=== PATIENT | male | born 1955 | race Caucasian/White ===

== ENCOUNTER → 2017-02-02 | Outpatient (CLI) | payer OTHER ==
[~2017-02-02] MED LIST: AFLEXERYL-LC 41 EACH TOP; ALDACTAZIDE 251 EAC1 PO; ALTACE10 M1; ALTACE10 MG PO; ANASPAZ0.125 MG SL; ATORVASTATIN CA40 MG PO; AUGMENTIN 875-1 EACH PO; BRINTELLIX10 MG PO; CARVEDILOL12.5 MG; CELEBREX 200 M200 M1 PO; COLACE 100 MG100 MG PO; COUMADIN 2 MG TA2 M1 PO; COUMADIN 5 MG TA5 M1 PO; COUMADIN7.5 MG PO; CYMBALTA60 MG; CYMBALTA60 MG PO; ENOXAPARIN150 MG/11 SUBQ; ENOXAPARIN30 MG/0.1 SUBQ; ENOXAPARIN80 MG/0.1 SUBQ; FLOMAX PO; FOLIC ACID1 MG PO; HYDROCODON-ACE1 EAC5; HYDROCODONE-AP1 EAC6 PO; IBUPROFEN 800800 M1 PO; MORPHINE SULFAT30 M1; MS CONTIN15 MG PO; NEURONTIN 300M300 M2; NEURONTIN100 MG PO; NORCO 5-325 TA1 EACH PO; OXYCODONE HCL 55 MG PO; OXYCODONE HCL5 M1 PO; PERCOCET 5-3251 EACH PO; PHENTERMINE H37.5 MG; PRAVACHOL40 MG; PRED-FORTE OPHTH1 M1; PROAIR HFA8.5 GM INH; REGLAN 10 MG TA10 MG PO; TESSALON PERLE100 MG PO; TIZANIDINE HCL4 MG PO; VITAMIN D-32000 UNIT; ZOFRAN 4 MG ORAL4 M1 DIS
[2017-02-02 09:15] LABS: CREATININE 0.8 mg/dL (0.6-1.3)
== END ==
LOC: M.LAB 01-25 06:30 → M.MRI 01-25 07:30 → M.LAB 02-01 07:30 → M.MRI 02-01 08:30 → M.LAB 08:47
DX: K76.89 Other specified diseases of liver (principal)

== ENCOUNTER → 2017-02-20 | Outpatient (CLI) | payer OTHER | LOC: M.MRI 13:06 | DX: M51.24 Other intervertebral disc displacement, thoracic region (principal); M47.894 Other spondylosis, thoracic region; M25.78 Osteophyte, vertebrae ==

== ENCOUNTER → 2017-02-28 | Outpatient (CLI) | payer OTHER ==
--- NOTE | 2017-03-01 08:24 | PAINCON ---
[address] [address] PAIN MANAGEMENT CONSULTATION Name: AURE BERG Room: [facility] Rhonda#: [id number] Admission: 02/28/17 Attend Phys: Terrance Gallo Discharge: Date of : 57 Report #: [id number] THIS REPORT FOR: //name// CC: Gabino Goldstein DO Christiano Bryant DATE OF SERVICE: 02/28/2017 The patient is a 61-year-old gentleman seen in the Pain Clinic in consultation at the request of Dr. Goldstein for evaluation of pain, right flank. The patient notes he has constant, sharp, burning pain in the right flank, which has been present for a number of years, states it started acutely in 12/2015 without antecedent trauma and overuse. He has been disabled for many years due to multiple ongoing concerns. He rates his pain as 7 on an VAS despite taking 30 mg of morphine daily (MS Contin 30 mg at bedtime), Cymbalta 60 mg daily (he has taken morphine for 17 years and duloxetine for 4 years). He gives me a long list of pain generators including DJD bilateral hips, neuropathic pain, myofascial pain, SI joint pain, lumbar spondylosis, cervical radiculopathy, and status post decompressive laminectomy. He states he has had a right total hip arthroplasty 10/13/2016. He has left hip DJD and sciatic symptoms of neurogenic claudication, but his primary pain is right flank pain. On further questioning and physical exam, actually it appears that the pain is more in a right low back distribution and somewhat at the L4 level, radiating around to paravertebral muscles. The patient denies radiation of pain into the legs from the right "flank" pain. States really any and all activity including even sneezing exacerbates this pain. He gets some relief with rest. REVIEW OF SYSTEMS: Complete review of systems was attached to chart and was gone with the patient. He is . He does not smoke and does not drink alcohol to excess. History of hypertension, history of hypercoagulopathy (protein S deficiency), has had 2 CVAs back about 30 years ago, unfortunately no sequelae. He does take Coumadin daily. He takes ramipril for hypertension, atorvastatin for dyslipidemia. As noted in chief complaint, he takes duloxetine 60 mg a day and MS Contin 30 mg at bedtime for chronic pain concerns. He has been retired, medically disabled for the past 10 years due to pain. He has had 3 back surgeries in 1992, 1995, and 1997. 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 He has had a right rotator cuff repair, right total hip arthroplasty. Pain impact score is fairly high, scoring 50/70. PHYSICAL EXAMINATION: Shows a 6 feet 3 inches, 312-pound gentleman, BMI is 39.4 kg/m2. Blood pressure is 160/91, pulse respirations 16[place] [address] PAIN MANAGEMENT CONSULTATION Name: AURE BERG [id number] Admission: 02/28/17 Attend Phys: Terrance Gallo Discharge: Date of : 56 Report #: [id number] 2-12 are grossly intact. Pupils appear equal and reactive to light and accommodation. Extraocular muscles are intact. Again, he does have a decreased right lateral field visual acuity. No nystagmus. Lateral gaze deviation is noted. Cervical range of motion is full. Alert and oriented to person, place and time, judged to be a reasonable historian. Thyroid is unremarkable. Upper extremity strength is about 4/5 to all muscle groups tested. Heart is regular and rhythmical without murmur. Lungs clear to auscultation. Abdomen shows an endomorphic build. Rises from chair using the armrest, antalgic gait, though objectively lower extremity strength is 4/5 to all muscle groups tested. Straight leg raise is negative. Patellar and Achilles reflexes are diminished, but symmetric. Does have a significant diastasis recti ventral hernia. Tender over the right iliac crest and right lateral paravertebral muscles. Pain is exacerbated with rotating and side bending. Some tenderness over the right SI as well. Radha and Gaenslen's test deferred as patient is status post right total hip arthroplasty. DIAGNOSTIC STUDIES: There are no recent diagnostic studies available for evaluation at this time. ASSESSMENT: Chronic pain in patient with multiple pain generators as discussed in the chief complaint; however, current pain appears to be coming from right L4-L5 and L5-S1 facet joints. May be component of right SI joint pain. We discussed moving forward with therapeutic options. We will seek authorization for right L4-L5 and L5-S1 facet joint injections under fluoroscopy. If this does not afford adequate relief, can move forward with right SI joint injection under fluoroscopy. If the facet joint injections do afford adequate relief, but only transient, we may consider moving forward with medial branch dorsal rami diagnostic blocks. We can do the facet injections on Coumadin; however, would want to get the patient on a Lovenox "bridge" for medial branch dorsal rami diagnostic blocks and neurolysis. Thanks for allowing me to participate in the care the patient's care. Again, we will plan on moving forward with right L4-L5 and L5-S1 facet joint injection under fluoroscopy at next visit. <ELECTRONICALLY SIGNED> By: Christiano Bryant DO 03/01/17 0824 1514 0100Christiano Bryant DO /nt
== END ==
LOC: M.PC 02-21 01:30
DX: G89.29 Other chronic pain (principal); M53.3 Sacrococcygeal disorders, not elsewhere classified

== ENCOUNTER → 2017-03-07 | Outpatient (CLI) | payer OTHER ==
--- NOTE | 2017-03-12 07:21 | PAINCON ---
[address] [address] PAIN MANAGEMENT CONSULTATION Name: AURE BERG Room: [facility] NATHAN Ellis#: [id number] Admission: 03/07/17 Attend Phys: Terrance Gallo Discharge: Date of : 56 Report #: [id number] THIS REPORT FOR: //name// CC: Gabino Bryant The patient is a 61-year-old gentleman, prior seen in consultation on 02/28/2017. The patient was diagnosed with symptomatic lumbar radiculopathy status post decompressive laminectomy, right low lumbar facet generated pain, component of right SI mediated pain, component of failed back syndrome and chronic pain with neuropathic pain component and depression related to factors noted above. We sought authorization for right L4-L5 and L5-S1 facet joint injections under fluoroscopy. The patient presents to pain clinic today for facet injection. We did have a prolonged visit today discussing therapeutic options. The patient was actually a little tearful today stating he has had chronic pain for 30 years and is getting quite frustrated. He does take Cymbalta 60 mg 1 a day, which has been incrementally helpful. He does use opiate analgesics which help "blunt" pain (MS extended release 60 mg b.i.d. with hydrocodone 5/325 up to 4 a day for approximately 80 milligram equivalents of morphine daily). Today, we talked about therapeutic options. The patient was concerned about his spinal stenosis. His prior back surgeries x , 1992, 1995 and 1997 have left the patient with ongoing pain. I did review his 07/24/2014 MRI of the lumbar spine today. The patient has stenosis at L2-L3 secondary to facet degenerative changes, bilateral neural foraminal narrowing, component of disk "bulging" and ligamentum flavum hypertrophy. Canal is narrowed to 5-6 mm at the superior aspect. L5-S1 shows severe bilateral neural foraminal narrowing. Today, we did talk about moving forward with the aforementioned right L4-L5 and L5-S1 facet joint injections. If this affords short-term relief, we can consider medial branch dorsal rami diagnostic block in consideration of RFL. If this does not afford adequate relief, we did talk about other therapeutic options for ongoing pain management. Having failed back surgery with pain that is significantly impactful, we did discuss a spinal cord stimulator. This has been brought up to the patient before, though with a psychological evaluation noting patient did have ongoing depression, his prior pain physician had elected not to move forward. I think this is not a rate limiting obstacle (depression). As long as the patient is aware of the depression and is being treated, the most impactful issue for psychological evaluation as required by most third libertarian payers is to evaluate any component of malingering. I do not detect that with the patient. He does have ongoing anxiety and depression secondary to chronic pain. We talked today about this. He does take Cymbalta 60 mg daily and he has for some time, I suggested he could consider doubling this agent. Again, he has a fairly large body mass index (he is 6 feet 2 inches and [address] [place] [address] PAIN MANAGEMENT CONSULTATION Name: AURE BERG Room: [facility] Rhonda#: [id number] Admission: 03/07/17 Attend Phys: Terrance Gallo Discharge: Date of : 56 Report #: [id number] with a BMI of 40 kilograms per meter squared). I did give the patient print and video literature regarding the high frequency Nevro spinal cord stimulator. A possible concerning issue is the fact that he has protein S deficiency, hypercoagulability. He uses Coumadin daily. He has had multiple strokes including an ocular stroke. He does have a vena cava filter in place. He would need to be transitioned with Lovenox, off of Coumadin for the trial. There is a concern in the literature regarding whether or not to resume blood thinner while the trial is in place. Also, concerns for safety of spinal cord stimulator placement in a patient on active anticoagulant. ASSESSMENT #1: Chronic pain syndrome, status post lumbar decompressive laminectomy, failed back syndrome and depression. RECOMMENDATION: As noted above, increase Cymbalta b.i.d. The patient was given spinal cord stimulator print and video literature. ASSESSMENT #2: Axial back pain. RECOMMENDATION: Right L4-L5 and L5-S1 facet joint injections under fluoroscopy today. PROCEDURE NOTE: After written informed consent was obtained, the patient was taken to the fluoroscopy suite, placed in the prone position. After sterile prep and drape, skin wheal was raised. A 22-gauge stylet needle was placed to contact the inferior aspect of the right L4-L5 and right L5-S1 facet. AP and lateral projections showed good needle placement. A 20 mg triamcinolone plus 1 mL of 0.5% preservative-free bupivacaine was injected at each site. Both needles removed. The area was cleansed and Band-Aids applied. The patient monitored for an appropriate period of time, discharged in good stable condition. <ELECTRONICALLY SIGNED> By: Christiano Bryant DO 03/12/17 0721 1439 [id number] Leonard Bryant DO /nt
== END | disposition home or self-care (01) ==
LOC: M.PC 01:41
DX: M54.16 Radiculopathy, lumbar region (principal); M48.061 Spinal stenosis, lumbar region without neurogenic claudication; M53.3 Sacrococcygeal disorders, not elsewhere classified; M96.1 Postlaminectomy syndrome, not elsewhere classified; G89.4 Chronic pain syndrome; F41.9 Anxiety disorder, unspecified; F32.9 Major depressive disorder, single episode, unspecified; Z98.890 Other specified postprocedural states; Z79.899 Other long term (current) drug therapy; Z79.01 Long term (current) use of anticoagulants

== ENCOUNTER → 2017-04-04 | Outpatient (CLI) | payer OTHER ==
--- NOTE | 2017-04-05 10:21 | PAINCON ---
[address] [address] PAIN MANAGEMENT CONSULTATION Name: AURE BERG [facility] [id number] Admission: 04/04/17 Attend Phys: Terrance Gallo Discharge: Date of : 56 Report #: [id number] THIS REPORT FOR: //name// CC: Gabino Bryant DATE OF SERVICE: 04/04/2017 The patient is a very pleasant 62-year-old [employer] retiree being seen for ongoing axial back pain. Last visit 03/07/2017, I did write L4-L5 and L5-S1 facet joint injections under fluoroscopy. The patient has prior had back surgery x , 1992, 1995, 1997. Radicular symptoms have generally improved, but he has ongoing right low back pain. He notes very good, greater than 60% relief following the L4-L5, L5-S1 facet joint injections for about 2 days, but pain began to recur to baseline. The patient notes ongoing subjective pain, low back, right side beltline and down. Pain is exacerbated with standing, rotating and side bending. PHYSICAL EXAMINATION: Otherwise unchanged. Lower extremity strength is preserved. Straight leg raise is negative. Well-healed surgical scar compatible with multiple back surgeries. DIAGNOSTIC STUDIES: Reviewed including MRI from 07/24/2014. The patient has bony proliferation at L2-L3 from inferior margin of the facet joints bilaterally causing fairly narrow canal down to about 5-6 mm with ligamentum flavum hypertrophy. The patient believes that this may have been secondary to trauma, he had fallen on his back, striking at area he recalls was around the L2-L3 area. He has had multiple back surgeries, subsequent to this due to ongoing stenosis. The patient does have ongoing lumbar spondylosis as well as bilateral neural foraminal narrowing, most severe at L5-S1. Fortunately, this does not correlate with L5 radicular symptoms. ASSESSMENT: Symptomatic lumbar and lumbosacral spondylosis without myelopathy or radiculopathy (M47.816, M47.817) in a gentleman status post multiple back surgeries requiring complex medication management. RECOMMENDATIONS: Discussion with the patient today about therapeutic option. We elected to seek authorization for right-sided medial branch dorsal rami diagnostic blocks at L3, L4 and L5. If this affords transient relief, we will seek authorization for radiofrequency [place] [address] PAIN MANAGEMENT CONSULTATION Name: AURE BERG Room: [facility]#: [id number] Admission: 04/04/17 Attend Phys: Terrance Gallo Discharge: Date of : 56 Report #: [id number] If this does not afford adequate relief, we may consider spinal cord stimulator as a possible therapeutic option. <ELECTRONICALLY SIGNED> By: Christiano Bryant DO 04/05/17 1021 1339 1848[facility] Centerroland Bryant DO /randi
== END ==
LOC: M.PC 03:40
DX: M47.817 Spondylosis without myelopathy or radiculopathy, lumbosacral region (principal); Z98.890 Other specified postprocedural states; Z79.899 Other long term (current) drug therapy

== ENCOUNTER → 2017-04-18 | Outpatient (CLI) | payer OTHER ==
--- NOTE | 2017-04-19 09:41 | PAINCON ---
[address] [address] PAIN MANAGEMENT CONSULTATION Name: AURE BERG [id number] Admission: 04/18/17 Attend Phys: Terrance Gallo Discharge: Date of : 56 Report #: [id number] THIS REPORT FOR: //name// CC: Gabino Bryant DATE OF SERVICE: 04/18/2017 PROCEDURE: Medial branch dorsal rami diagnostic block in the lumbar area x 3 (right side L3, L4, L5). INDICATIONS: Symptomatic lumbar spondylosis, lumbosacral spondylosis, M47.816, M47.817, status post lumbar decompressive laminectomy in the distant past. The patient was last seen 04/04/2017. We sought authorization for medial branch dorsal rami diagnostic blocks on the right at L3, L4, L5. He had had prior excellent, yet short term relief with L4-L5 and L5-S1 facet joint injections on the right side at prior visit. The patient continues with ongoing pain of right low back. He also has pain in the left hip and is scheduled for left total hip arthroplasty at the end of the month. ASSESSMENT: M47.816, M47.817 in a gentleman status post lumbar decompressive laminectomy in the distant past. PROCEDURE NOTE: After written informed consent was obtained, the patient was taken to the fluoroscopy suite and placed in prone position. After sterile prep and drape and skin was raised, a 22-gauge stylet needle was placed to contact superior articular process of L4 and L5 adjacent to the L3 and L4 medial branch dorsal rami. A third needle, this being a 4-1/2 inch 22-gauge stylet needle was placed to contact the sacral alar notch on the right corresponding to the right L5 dorsal rami. AP and lateral projections showed good needle placement. 1 mL of a 50:50 mix of 0.5% preservative-free bupivacaine plus 1.5% preservative-free Xylocaine with 1:200,000 epinephrine was injected in all 3 sites. All 3 needles removed. The area was cleansed. Bandages were applied. Fluoroscopy time was under 20 seconds. The patient noted significant improvement of baseline pain, in fact noting that the right "flank" pain was essentially absent on discharge. We will plan on following up in 2 weeks to evaluate duration of block, which should be the length of the local anesthetic. [place] [address] PAIN MANAGEMENT CONSULTATION Name: AURE BERG [facility] [id number] Admission: 04/18/17 Attend Phys: Terrance Gallo Discharge: Date of : 56 Report #: [id number] for RFL of same. Given pending total hip arthroplasty, we will likely postpone the RFL until 4-6 weeks after his hip surgery. <ELECTRONICALLY SIGNED> By: Christiano Bryant DO 04/19/17 0941 1358 1940[place] Leonard Bryant DO /nt
== END | disposition home or self-care (01) ==
LOC: M.PC 04-11 12:50
DX: M47.816 Spondylosis without myelopathy or radiculopathy, lumbar region (principal); M47.817 Spondylosis without myelopathy or radiculopathy, lumbosacral region; Z98.890 Other specified postprocedural states

== ENCOUNTER → 2017-05-02 | Outpatient (CLI) | payer OTHER ==
--- NOTE | 2017-04-19 15:23 | EKG ---
[place] [address] ELECTROCARDIOGRAM REPORT Name: AURE BERG Room: [facility]#: [id number] Admission: Attend Phys: Terrance Gallo Discharge: Date of : 56 Report #: [id number] THIS REPORT FOR: //name// [facility] Test Date: 2017-04-19 Test Time: 09:05:48 Pat Name: AURE BERG Department: Room: Gender: M Doula: : 1955 Requested By: David Alexis Order Number: [id number] Reading MD: Mk Perdue Measurements Intervals [place] Rate: 70 P: 59 NM: 162 QRS: 61 QRSD: 97 T: 49 QT: 389 QTc: 420 Interpretive Statements Sinus rhythm Baseline wander in lead(s) I,III,aVL,aVF,V1,V2,V3,V4,V5,V6 Compared to ECG 09/28/2016 09:03:23 No significant changes Electronically Signed On 04-19-2017 15:22:58 CDT by Mk Perdue [email or web address] <ELECTRONICALLY SIGNED> By: Mk Perdue MD, [facility] 04/19/17 1522 0905 0905 Mk Perdue MD, [facility] /EPI
--- NOTE | 2017-05-04 09:51 | PAINCON ---
[address] [address] PAIN MANAGEMENT CONSULTATION Name: AURE BERG Room: [facility] NATHAN Ellis#: [id number] Admission: 05/02/17 Attend Phys: Terrance Gallo Discharge: Date of : 56 Report #: [id number] THIS REPORT FOR: //name// CC: Gabino Bryant DATE OF SERVICE: 05/02/2017 The patient is a very pleasant 62-year-old gentleman being treated for lumbar spondylosis without myelopathy or radiculopathy, history of decompressive lumbar laminectomy. He prior had good relief with right L4-L5 and L5-S1 facet joint injections (03/07/2017) for several weeks with pain gradually recurred. Last visit on 04/18/2017, we did diagnostic medial branch dorsal rami blocks at right L3, L4, and L5. The patient returns to Pain Clinic today. Please note that he had 90% relief for actually several days following the injection, but pain has begun to recur, is back to 6-7 on a VAS right low back, exacerbated with rotating and bending. He incidentally has ongoing pain in left hip and is in fact scheduled for total hip arthroplasty next week. We talked about moving forward with radiofrequency neurolysis. We would like to wait 6 weeks after his surgery as we will use steroid at the RFL lesion sites and would not want to interfere with postoperative healing. PHYSICAL EXAMINATION: Shows 6 feet 2 inches, 316-pound gentleman, BMI is 40.5 kg/m2. Blood pressure 158/85, pulse wnl respirations 16. Alert and oriented to person, place and time, judged to be a reasonable historian. Right flank pain exacerbated with standing, walking, and bending. Gait is antalgic secondary to a DJD left hip. Lower extremity strength is preserved. No radicular symptoms are noted. ASSESSMENT: Symptomatic lumbar spondylosis without myelopathy or radiculopathy. RECOMMENDATIONS: We will seek authorization for radiofrequency neurolysis, right medial branch dorsal rami L3, L4 and L5 at next visit. Again, we will plan on doing this 6 weeks after his surgery next week, would target mid to late June. Of note, the patient is on Coumadin. He will need to bridge with Lovenox 5 days prior to the procedure. He is on Coumadin due to protein S deficiency and antithrombin deficiency, all culminating in multiple (either 2 or 3) [place] [address] PAIN MANAGEMENT CONSULTATION Name: AURE BERG Room: [facility]#: [id number] Admission: 05/02/17 Attend Phys: Terrance Gallo Discharge: Date of : 56 Report #: [id number] Discharged in good and stable condition. <ELECTRONICALLY SIGNED> By: Christiano Bryant DO 05/04/17 0951 1435 1814[facility] Hospitalroland Bryant DO /randi
== END ==
LOC: M.PC 02:33
DX: M47.816 Spondylosis without myelopathy or radiculopathy, lumbar region (principal)

== ENCOUNTER 2017-05-04 08:39 | Inpatient (IN) | payer OTHER ==
[2017-04-19 09:58] LABS: ABSOLUTE BASOPHILS 0.1 thou/uL (0.0-0.2); ABSOLUTE EOSINOPHILS 0.1 thou/uL (0.0-0.7); ABSOLUTE LYMPHOCYTES 2.6 thou/uL (0.8-5.3); ABSOLUTE MONOCYTES 0.7 thou/uL (0.0-1.2); ABSOLUTE NEUTROPHILS 6.3 thou/uL (1.6-8.1); BASOPHILS 0.8 %; EOSINOPHILS 1.5 %; HEMATOCRIT 44.7 % (42.0-52.0); HEMOGLOBIN 14.8 gm/dL (14.0-18.0); LYMPHOCYTES 26.5 %; MCH 28.3 pg (26.0-34.0); MCHC 33.1 g/dL (28.0-37.0); MCV 85.5 fL (80.0-100.0); MONOCYTES 7.2 %; MPV 8.4 fl. (7.2-11.1); NUCLEATED RBCS 0 /100WBC; PLATELET COUNT* 287 thou/uL (150-400); RBC 5.22 mil/uL (4.50-6.00); RDW-CV 15.8 % (10.5-14.5); WBC 9.9 thou/uL (4.0-11.0)
[2017-04-19 10:05] LABS: APTT 33.8 Seconds (25.0-31.3); INR 1.8; PROTIME 17.3 Seconds (9.20-11.50)
[2017-04-19 10:09] LABS: ALBUMIN 3.5 g/dL (3.4-5.0); CREATININE 0.9 mg/dL (0.6-1.3); POTASSIUM 4.1 mmol/L (3.5-5.1); TOTAL BILIRUBIN 0.5 mg/dL (<0.1-1.0); TOTAL PROTEIN 8.3 g/dL (6.4-8.2)
[2017-04-19 11:21] LABS: ESR (SEDRATE) 18 mm/hr (0-20)
[2017-04-20 03:15] LABS: GLYCOHEMOGLOBIN (HGB A1C) 5.2 % (4.8-5.6)
[~2017-05-04] VITALS: Ht 188 cm; Wt 140.6 kg
[~2017-05-04 08:39] MED LIST changes: -AFLEXERYL-LC 41 EACH TOP; -COLACE 100 MG100 MG PO; -ENOXAPARIN150 MG/11 SUBQ; -ENOXAPARIN80 MG/0.1 SUBQ; -NEURONTIN100 MG PO; -OXYCODONE HCL5 M1 PO; -TIZANIDINE HCL4 MG PO
[2017-05-04] MEDS ORDERED: ENOXAPARIN80 MG/0.1 SUBQ (10:58)
[2017-05-04 11:22] LABS: PROTIME 10.1 Seconds (9.20-11.50)
[2017-05-04 12:15] VITALS: BP 178/98
[2017-05-04 17:45] VITALS: BP 157/85
--- NOTE | 2017-05-04 17:55 | NUR ---
ASSUMED CARES OF PT FROM PACU POST LEFT HIP SURGERY. PT IN BED, BED IN LOW LOCKED POSITION, CALL BUTTON AND PERSONAL ITEMS IN PT REACH. FALL PRECAUTIONS IN PLACE. PT A&O X4, HRRR PER AUSCULTATION, LCTAB, AFEBRILE, PERRLA, SKIN INTACT, SCARS, SCATTERED BRUISING, LEFT HIP SITE DRESSING C/D/I, SHAYAN HOSE IN PLACE BILATERALLY, FOOT PUMPS ON BILATERALLY. SPOUSE AT BEDSIDE. CONTINUE HOURLY ROUNDS. PT HAS DEGENERATIVE DISK DISEASE IN BACK AND HAS TO ROLL TO HIS SIDE TO PUSH UP WHEN SITTING UP. VSS ON 2L NC, NOT WORN AT HOME. FENTANYL TOO STRONG, PT RESPIRATIONS DECREASED. ABD SOFT TO PALPATE, PULSES RADIAL AND PEDAL WNL. WILL CONTINUE TO MONITOR PT STATUS, PROGRESS AND PAIN.
[2017-05-04 21:32] VITALS: BP 157/94
[2017-05-05 00:42] VITALS: BP 157/86
[2017-05-05 04:24] VITALS: BP 135/81
[2017-05-05 05:00] LABS: HEMATOCRIT 40.3 % (42.0-52.0); HEMOGLOBIN 13.4 gm/dL (14.0-18.0)
--- NOTE | 2017-05-05 05:59 | NUR ---
ALERT AND ORIENTED X4. REMAINS ON TOTAL HIP PRECAUTIONS WITH PILLOW BETWEEN LEGS. USING PO AND IV PAIN MEDICATION TO HELP WITH PAIN. VOIDING WITHOUT DIFFICULTY. REMAINS PARTIAL WEIGHTBEARING TO LEFT LEG. DRESSING DRY AND INTACT OVER LEFT HIP. ICE PACK APPLIED TO LEFT HIP. CALL LIGHT WITHIN REACH.
[2017-05-05 08:11] VITALS: BP 143/85
--- NOTE | 2017-05-05 14:30 | NUR ---
MET WITH PT TO DISCUSS HOME SITUATION/DC PLANNING. PT LIVES WITH . HE IS NORMALLY INDEPENDENT AND ACTIVE. S/P DEMAR, STATES HAD SURGERY LAST FALL ON HIS OTHER HIP AND DID WELL. HAS FWW AND USES [facility] WITH THAT SURGERY, WANTS TO DO THE SAME. PT TAKES COUMADIN AND WENT HOME ON A LOVENOX/COUMADIN BRIDGE. HE IS PAINFUL TODAY AND GETTING READY TO WORK WITH THERAPY. WILL NEED ORDERS CALLED AND FAXED TO [facility]. WILL FOLLOW [facility] [phone] FAX [phone]
[2017-05-05 15:58] VITALS: BP 143/85
[2017-05-05 16:00] VITALS: BP 103/55
--- NOTE | 2017-05-05 16:37 | NUR ---
ASSUMED CARE OF PATIENT AFTER MORNING REPORT. ALERT AND ORIENTED X4. ASSESSMENT COMPLETED AND CHARTED. VSS ON ROOM AIR. PATIENT HAS HAS NO COMPLAINTS OF NAUSEA THIS SHIFT. PATIENT HAS HIP AND BACK PAIN WHICH HAS BEEN MANAGED WITH MEDICATION. PATIENT HAS WORKED WITH PT AND OT AND IS BEGINNING TO PROGRESS THERE, PAIN HAS BEEN AN ISSUE WITH THIS BUT WITH A CHANGE IN MEDICATION, HE IS MOVING TOWARD HIS GOALS WITH THERAPY. PATIENTS APPETITE NEEDS IMPROVING SO WILL CONTINUE FLUIDS UNTIL HIS ORAL INTAKE IS MORE ADEQUATE, THIS MAY ALSO IMPROVE NOW THAT PAIN IS MORE UNDER CONTROL. HOURLY ROUNDS HAVE BEEN MAINTAINED. CALL LIGHT WITHIN REACH. NURSING WILL CONTINUE TO MONITOR.
[2017-05-05 20:45] VITALS: BP 105/56
[2017-05-06] VITALS: BP 100/53
[2017-05-06 04:00] VITALS: BP 111/54
[2017-05-06 04:13] LABS: HEMATOCRIT 37.6 % (42.0-52.0); HEMOGLOBIN 12.3 gm/dL (14.0-18.0)
[2017-05-06 04:20] LABS: INR 1.1; PROTIME 10.7 Seconds (9.20-11.50)
--- NOTE | 2017-05-06 04:36 | NUR ---
PATIENT HAS REMAINED ALERT AND ORIENTED X 4 THROUGHOUT THE SHIFT AND RESTING QUIETLY ON HOURLY ROUNDS. REPOSITIONED BACK PAIN ALLOWED. PATIENT IS ABLE TO USE RIGHT LEG TO SHIFT HIPS FREQUENTLY ON OWN WELL. DRESSING LEFT HIP CLEAN AND DRY. ICE PACKS PROVIDED. PATIENT INDEPENDENT IN USE OF INCENTIVE SPIROMETRY, GLUTEAL SQUEEZES AND FOOT PUMPS. PAIN CONTROL WITH USE OF OXY IR 20 MG. PATIENT ENCOURAGED TO SPACE OUT TO 4 HOURS IF ABLE DUE TO SOFT BP. CONTINUE TO MONITOR.
[2017-05-06 09:30] VITALS: BP 110/60
--- NOTE | 2017-05-06 13:49 | NUR ---
ASSUMED PT CARE AT 0700 PT IS ALERT AND ORIENTED X 4 PT C/O PAIN GAVE SCHEDULED PAIN MEDS REASSESSED PT STATES IT HEPLED, PT DENIES SOA PT WORKED WITH OCCUPATIONAL THERAPY WHO SAT PT ON SIDE OF BED WITH ASSIST X 2 PT WAS ABLE TO STAND, PT WORKED WITH PHYSICAL THERAPY AND AMBUATED WITH WALKER, PT HAS SHAYAN HOSE ON EDUCATED ON THE IMPORTANCE OF WEARING, GAVE PT LOVENOX SCHEDULED, PT IS Q 2 TURNS WHICH PT HELPS TURN SELF, PT MAY DISCHARGE TOMORROW, WILL CONTINUE TO MONITOR
[2017-05-06 16:00] VITALS: BP 106/60
[2017-05-06 21:45] VITALS: BP 107/54
[2017-05-07 00:45] VITALS: BP 102/52
[2017-05-07 04:32] VITALS: BP 112/57
[2017-05-07 04:53] LABS: HEMATOCRIT 33.7 % (42.0-52.0); HEMOGLOBIN 11.2 gm/dL (14.0-18.0)
--- NOTE | 2017-05-07 05:03 | NUR ---
ALERT AND ORIENTED X4. UP WITH 2 ASSIST GAIT BELT AND WALKER. DRESSING LEFT HIP DRY AND INTACT. USED PO PAIN MEDICATION THROUGHOUT NIGHT TO HELP WITH LEFT HIP AND BACK PAIN. REMAINS ON 50% WEIGHTBEARING TO LEFT LOWER EXTREMITY. ON TOTAL HIP PRECAUTIONS. FREQUENTLY REFUSED TO BE REPOSITIONED THROUGHOUT THE NIGHT. CALL LIGHT WITHIN REACH. PROGRESSING TOWARD DISCHARGE GOAL.
[2017-05-07 05:05] LABS: INR 1.1
[2017-05-07 08:00] VITALS: BP 91/44
[2017-05-07] MEDS ORDERED: NEURONTIN100 MG PO (08:01)
[2017-05-07] MEDS ORDERED: AFLEXERYL-LC 41 EACH TOP (08:01)
[2017-05-07] MEDS ORDERED: COLACE 100 MG100 MG PO (08:01)
--- NOTE | 2017-05-07 11:22 | NUR ---
CHANGE OF SHIFT BEDSIDE REPORT GIVEN ASSUMED PATIENT CARE PATIENT SEEN IN BED ASLEEP
--- NOTE | 2017-05-07 12:00 | NUR ---
PT.NOT PROGRESSING IN THERAPY. WILL NEED SNF. PT.VERY LETHARGIC,UP IN CHAIR. STATED 'AM I IN BED?' REORIENTED PT.TO SURROUNDINGS. TALKED TO HIM ABOUT SNF. HE IS AGREEABLE. GAVE HIM LIST BUT HE KEPT HIS EYES SHUT. READ LIST TO HIM. HE CHOSE [facility]. REFERRAL FAXED TO [facility]. SHE WILL NEED TO OBTAIN INSURANCE AUTH. CM ALSO GAVE A SNF LIST BEFORE SHE LEFT. 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
[2017-05-07 16:01] VITALS: BP 117/58
[2017-05-07 20:00] VITALS: BP 120/66
[2017-05-07 23:39] VITALS: BP 117/63
[2017-05-08 04:00] VITALS: BP 139/74
[2017-05-08 04:22] LABS: INR 1.1; PROTIME 10.9 Seconds (9.20-11.50)
--- NOTE | 2017-05-08 04:50 | NUR ---
PATIENT HAS SLEPT WELL THROUGHOUT THE NIGHT WITHOUT ANY ISSUES NOTED. PAIN HAS BEEN WELL CONTROLLED. MEDICATIONS GIVEN ORDERED AND CHARTED. VSS ON 2L 02 VIA NASAL CANNULA. PATIENT HAS REMAINED ON HIP PRECAUTIONS. IV IN RIGHT HAND-1/2 NS @ 75ML/HR. DRESSING TO LEFT HIP IS C/D/I, SHAYAN HOSE, AND SCD'S IN PLACE. PATIENT INSTRUCTED TO USE CALL LIGHT WHEN NEEDING ASSISTANCE. HOURLY ROUNDS MADE. WILL CONTINUE WITH PLAN OF CARE AND NURSING TO MONITOR.
[2017-05-08 07:52] VITALS: BP 140/75
[2017-05-08] MEDS ORDERED: OXYCODONE HCL5 M1 PO (08:24)
[2017-05-08 09:31] VITALS: BP 140/75
[2017-05-08] MEDS ORDERED: ENOXAPARIN150 MG/11 SUBQ (10:26)
--- NOTE | 2017-05-08 12:01 | NUR ---
SPOKE WITH [facility]. SHE SAID SHE SUBMITTED INSURANCE INFORMATION FOR SNF AUTHORIZATION AT END OF BUSINESS YESTERDAY. [facility] CAN ACCEPT HIM PENDING INSURANCE AUTHORIZAITON.
--- NOTE | 2017-05-08 13:51 | NUR ---
RECEIVED CALL FROM [facility]. SHE RECEIVED AUTHORIZATION FROM INSURANCE FOR SKILLED STAY. SHE WILL ARRANGE [facility] FOR 1500. CHART TO BE DOCPIED TO GO WITH PT. MOIZRN WILL CALL REPORT. NOTIFIED AND PT.OF TRANSFER TIME. FAXED DISCHARGE ORDERS TO [facility] [phone].
--- NOTE | 2017-05-09 13:20 | S ---
[address] [address] SURGICAL PATH RPT PROCEDURE Name: AURE ELY Room: [address] IN ..#: [id number] Admission: 05/04/17 Date of : 57 Discharge: 05/08/17 Report #: [id number] Path Case #: [id number] PATHOLOGY REPORT COLLECTION DATE: 05/04/2017 RECEIVED DATE: 05/07/2017 SUBMITTING PHYS: Dr. David Alexis OTHER PHYS: Dr. Alonso Goldstein SPECIMEN(S) RECEIVED: A.Left hip bone and tissue * * * * * * * * * * * * FINAL DIAGNOSIS: Left hip bone and tissue: - Benign dense fibrous connective tissue and benign femoral head including hematopoietic elements with degenerative changes. (LAKISHA:[facility]; 05/09/2017) PATHOLOGIST: Hair Green M.D. REPORT ELECTRONICALLY SIGNED BY: Hair Green M.D. DATE/TIME: 05/09/2017 13:19 * * * * * * * * * * * * GROSS PATHOLOGY: Received in formalin labeled "Aure Ely, left hip bone and tissue," is a femoral head measuring 5.3 x 5.3 x 6.2 cm in greatest dimensions. The articular surface is pale álvarez and smooth in appearance with no gross evidence of eburnation, however, a slight amount of osteophytic lipping is present. Sectioning the bone reveals light álvarez cut surfaces. There is a slight amount of attached pink-álvarez fibrous soft tissue measuring 2.2 x 1.0 x 0.3 cm. Ruling Machine Set Up Operator tissue is submitted in cassette A1, following decalcification. ([facility]; 05/08/2017) CLINICAL HISTORY: Left hip degenerative joint disease INITIAL CPT CODE(S): A; 83845, 19057 Professional services performed by [facility] at [facility] [address] [place] [address] SURGICAL PATH RPT PROCEDURE Name: AURE ELY Room: [address]#: [id number] Admission: 05/04/17 Date of : 57 Discharge: 05/08/17 Report #: [id number] Path Case #: [id number] Technical services performed by [facility] at [address] [place] [address], [facility] [address] [address]. [facility] [place] [address] PHONE: [phone] DIRECTOR: Humphrey Gonzalez M.D. * * * END OF REPORT * * *
--- NOTE | 2017-05-11 08:56 | OP ---
[address] [address] OPERATIVE REPORT Name: AURE BERG Room: [address]#: [id number] Admission: 05/04/17 Attend Phys: Terrance Lagunas Discharge: 05/08/17 Date of : 57 Report #: [id number] THIS REPORT FOR: //name// CC: David Steele DATE OF SERVICE: 05/04/2017 PREOPERATIVE DIAGNOSIS: Primary osteoarthritis, left hip. POSTOPERATIVE DIAGNOSIS: Primary osteoarthritis, left hip. PROCEDURE: Left total hip arthroplasty. SURGEON: David Alexis DO. TEAM ASSISTANT: Cheko Travis DO. ANESTHESIA: General with local periarticular block. FLUIDS: Lactated Ringer's. ANTIBIOTICS: 3 grams Ancef IV preoperatively. DRAINS: None. SPECIMENS: None. BLOOD LOSS: 250 mL. COMPLICATIONS: None. ORTHOPEDIC IMPLANTS: Biomet G7 56 mm acetabular shell, 36 mm inner diameter E1 neutral polyethylene liner, a size 15 high offset microplasty stem and a standard neck length modular Biolox head other 1 gram tranexamic acid topical intraoperatively. HISTORY: The patient is a 62-year-old male with longstanding history of bilateral hip pain. He has known advanced osteoarthritis of his left hip. He has already undergone right total hip arthroplasty, done well with this, presents today for left total hip arthroplasty. Radiographs show nyxn-lx-xcvc articulation, subchondral sclerosis and periarticular osteophytes. He is walking with an antalgic gait. He has had to use a cane at times with assisted device due to his left hip pain. Risks, benefits, complications, indications, and alternatives were discussed. He voiced understanding of things and elected [address] [address] OPERATIVE REPORT Name: AURE BERG Room: [address]#: [id number] Admission: 05/04/17 Attend Phys: Terrance Lagunas Discharge: 05/08/17 Date of : 57 Report #: [id number] to proceed. Risks include but not limited to fracture, infection, neurovascular injury, continued pain, loss of motion, need for subsequent revision surgery, leg length inequality, instability or dislocation of the left hip joint, DVT, PE, SD, stroke, and even . DESCRIPTION OF PROCEDURE: The patient was taken to the operative suite, placed in supine position and given benefit of general anesthetic. He was placed in the lateral decubitus position on the pegboard. All bony prominences were well padded. Left lower extremity and hip were sterilely prepped and draped in the usual fashion. Proper operative site was confirmed with standard timeout technique. A curvilinear lateral incision was made in the left hip. Dissection was carried down to the tensor fascia, which was then incised in line with the incision exposing the greater trochanter and gluteal attachments. Charnley retractor was placed. Gluteus medius and minimus was then partially elevated off the intertrochanteric line exposing the anterolateral capsule. An H capsulotomy was performed at this time and the hip was dislocated. A femoral neck cut was made with a reciprocating saw. The femoral head and neck were removed. We then obtained acetabular exposure. Retractors were placed and labral debridement was performed with Bovie knife. Reaming was initiated up in a sequential fashion to a size 55 reamer, which allowed circumferential reaming into a subchondral bone. Circumferential punctate bleeding was identified. After thorough irrigation was performed, I then implanted a 56 mm acetabular shell in a press-fit fashion utilizing light hammer blows. Once I confirmed that the cup was seated into appropriate position, two 6.5 mm bone screws were placed for additional acetabular fixation. It should be noted that excellent press fit was obtained. I then planned the above-mentioned polyethylene liner. Thorough irrigation was performed. I then turned my attention to the proximal femur where intramedullary canal was accessed initially with a box osteotome and then a rattail rasp. The broach was initiated up in a sequential fashion to a size 15 broach, which was left in place for trialing. Trialing him high offset standard neck length construct showed excellent intraoperative stability. Intraoperative flat plate AP x-rays showed appropriate leg lengths as well as component positioning and sizing. The hip was dislocated, trials were removed, thorough irrigation was performed. Final stent was implanted in press fit fashion. The final head was impacted on the Gong taper. Hip was reduced. Intraoperative stability was excellent. Thorough irrigation was performed. Capsule was closed with #1 Vicryl interrupted dcsmqd-be-ccfzz fashion. The gluteus repair was performed with #5 FiberWire utilizing osseous bites and then oversewn with #1 Vicryl interrupted lxqksp-nu-diskp fashion. The tensor fascia was then closed with a combination of #1 Vicryl interrupted idlgyg-ac-qfljc fashion and the running #2 Quill suture. Subcuticular and subcutaneous closure was performed with 2-0 Vicryl in interrupted znmeno-sx-plihk fashion and simple inverted interrupted fashion subcuticularly and the skin was closed with a running 3-0 Stratafix subcuticular suture with Dermabond on the skin. Sterile dressings were applied. The patient tolerated the procedure well. [place], [place] [address] OPERATIVE REPORT Name: AURE BERG Room: [address] IN M.R.#: [id number] Admission: 05/04/17 Attend Phys: Terrance Lagunas Discharge: 05/08/17 Date of : 57 Report #: [id number] needle counts correct x 2. The patient was taken to recovery in stable condition. <ELECTRONICALLY SIGNED> By: David Alexis DO 05/11/17 0856 1601 1645Alan Cristal Alexis DO /nt
[2017-06-27] MEDS ORDERED: TIZANIDINE HCL4 MG PO (12:11)
== END 2017-05-08 15:26 | DRG 470 ==
LOC: M.PRE 08:39 → M.ORTHSURG 10:38 → M.TBA 10:38 → M.PRE 12:45 → M.ORTHSURG 17:45
PROVIDERS: Internal Medicine; Orthopaedic Surgery; ADMIT Internal Medicine
PROC: 0SRB02A Replacement of Left Hip Joint with Metal on Polyethylene Synthetic Substitute, Uncemented, Open Approach (ICD-10-PCS; principal; 2017-05-04)
DX: M16.12 Unilateral primary osteoarthritis, left hip (principal); D68.59 Other primary thrombophilia; E78.5 Hyperlipidemia, unspecified; H54.7 Unspecified visual loss; Z96.641 Presence of right artificial hip joint; Z86.73 Personal history of transient ischemic attack (TIA), and cerebral infarction without residual deficits; Z79.01 Long term (current) use of anticoagulants; Z79.899 Other long term (current) drug therapy; Z86.718 Personal history of other venous thrombosis and embolism

== ENCOUNTER → 2017-06-13 | Outpatient (CLI) | payer OTHER ==
[~2017-06-13] MED LIST changes: +AFLEXERYL-LC 41 EACH TOP; +COLACE 100 MG100 MG PO; +ENOXAPARIN150 MG/11 SUBQ; +ENOXAPARIN80 MG/0.1 SUBQ; +NEURONTIN100 MG PO; +OXYCODONE HCL5 M1 PO; +TIZANIDINE HCL4 MG PO
--- NOTE | 2017-06-18 06:53 | PAINCON ---
[address] [address] PAIN MANAGEMENT CONSULTATION Name: AURE BERG Room: [facility] NATHAN Ellis#: [id number] Admission: 06/13/17 Attend Phys: Terrance Gallo Discharge: Date of : 56 Report #: [id number] THIS REPORT FOR: //name// CC: Gabino Bryant HISTORY OFPRESENT ILLLNESS: The patient is a 62-year-old gentleman, being treated for lumbar radiculopathy, status post decompressive laminectomy and history of lumbar and lumbosacral spondylosis without myelopathy. Last visit, 04/22/2017, we had proceeded with medial branch dorsal rami diagnostic blocks on the right at L3, L4 and L5. This afforded excellent short-term relief. Prior right L4-L5 and L5-S1 facet joint blocks through 02/24/2017 again had afforded good, yet transient relief of pain. We had discussed at our last visit moving forward with radiofrequency neurolysis of the medial branch dorsal rami innervating the right L4-L5 and L5-S1 facet joints (L3, L4 and L5 medial branch dorsal rami) after his total hip arthroplasty. The patient returns to the clinic today. He did indeed have total hip arthroplasty on 05/04/2017. Unfortunately, it sounds like he had somewhat of a complicated postoperative course, required increasing doses of opioid analgesic the first 2 days. It appears that on 05/06/2017, he did start to have improved pain control and was able to progress to 50% weightbearing. Gabapentin was started in the hospital, currently taking 200 mg b.i.d., with some efficacy. Was still requiring 2-person assist and he was ultimately transferred to snf facility ([facility] for about 2 weeks. The patient returns to the pain clinic today noting the hip seems to be improving. He is using a walker to ambulate. He still has ongoing pain in the right low back. The left total hip arthroplasty pain seems to be improving overall. PHYSICAL EXAMINATION: GENERAL: Shows a robust 62-year-old gentleman. VITAL SIGNS: Stable as noted on the chart. MUSCULOSKELETAL: Rises from the chair using armrest. Diffuse tenderness across the right low back, exacerbated with rotating and side bending. Still weightbearing bilaterally, but using the walker to assist with balance and offload a little bit on that left hip. ASSESSMENT: Symptomatic lumbar spondylosis without myelopathy, lumbosacral spondylosis without myelopathy in a gentleman status post lumbar decompressive laminectomy and remote history. RECOMMENDATIONS: I had a prolonged visit with the patient today. 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 He apparently had a back injury secondary to a fall from height onto his back. Apparently, there was no obvious osseous pathology noted on x-rays, i.e., [place] [address] PAIN MANAGEMENT CONSULTATION Name: AURE BERG Room: [facility] NATHAN Ellis#: [id number] Admission: 06/13/17 Attend Phys: Terrance Gallo Discharge: Date of : 57 Report #: [id number] obvious fracture and may have had an occult fracture or simply initiation of what has become chronic axial back pain. Nonetheless, we did somewhat review his medical history today. He was seen for prolonged visit from 11:10 to 11:35. Greater than 50% of the 25-minute visit was spent counseling the patient. He has had multiple letters written by Dr. Goldstein on his behalf. 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 From our standpoint, we will plan on moving forward with radiofrequency neurolysis, right L3, L4 and L5 medial branch dorsal rami at next visit (next week). Discharged in good and stable condition after prolonged visit today. <ELECTRONICALLY SIGNED> By: Christiano Bryant DO 06/18/17 0653 1448 0214Christiano Bryant DO /nt
== END ==
LOC: M.PC 08:03
DX: M47.816 Spondylosis without myelopathy or radiculopathy, lumbar region (principal); M47.817 Spondylosis without myelopathy or radiculopathy, lumbosacral region

== ENCOUNTER → 2017-06-20 | Outpatient (CLI) | payer OTHER ==
--- NOTE | 2017-06-21 07:19 | PAINCON ---
[facility] [address] [place] [address] PAIN MANAGEMENT CONSULTATION Name: AURE BERG Room: [facility] NATHAN Ellis#: [id number] Admission: 06/20/17 Attend Phys: Terrance Gallo Discharge: Date of : 57 Report #: [id number] THIS REPORT FOR: //name// CC: Gabino Bryant DATE OF SERVICE: 06/20/2017 The patient is a pleasant 62-year-old gentleman being treated for lumbar and lumbosacral spondylosis without myelopathy status post lumbar decompressive laminectomy. Last seen in the Pain Clinic 06/13/2017, ongoing right low back pain with good, yet transient relief following diagnostic blocks. We like to proceed with lumbar medial branch dorsal rami RFL for ongoing lumbar spondylitic pain. He is status post right total hip arthroplasty with improvement of pain, but still has rate limiting pain in the right low back. He wished to proceed with radiofrequency neurolysis as discussed in last visit. He is continuing with Cymbalta 60 mg 1 a day, Celebrex 200 mg daily, oxycodone for breakthrough pain, and MS Contin 30 mg b.i.d. This has been escalated since back surgery. Medications are being written by his orthopedic surgeon. ASSESSMENT: Symptomatic lumbar and lumbosacral spondylosis. PROCEDURE: Right L3, L4 and L5 medial branch dorsal rami neurolysis. DESCRIPTION OF PROCEDURE: After written and informed consent was obtained, the patient was taken to the fluoroscopy suite and placed in prone position. After sterile prep and drape, skin wheal was raised. A 50-mm RFK needle was placed to contact the right sacroiliac notch; second needle was placed lateral to this particular process of L5 adjacent to the L4-L5 facet joint adjacent to the L4 medial branch dorsal rami; third needle was placed adjacent to superior articular process of L4, lateral to the L3-L4 facet joint, lateral to the L3 medial branch dorsal rami. Appropriate initial impedance, sensory and motor testing was accomplished. Each needle was then injected with 1 mL of 1% preservative-free Xylocaine, heated to 80 degrees centigrade for 90 seconds and injected with 30 mg triamcinolone plus 1 mL of 0.5% preservative-free bupivacaine. Fluoroscopy time was 17 seconds. The patient was monitored for an appropriate period of time, discharged in good and stable condition to the recovery room. Subjective pain score was decreased to 2 on a VAS. Follow up next week to evaluate efficacy of intervention. <ELECTRONICALLY SIGNED> By: Christiano Bryant DO 06/21/17 0719 1445 0330Christiano Bryant DO /randi
== END | disposition home or self-care (01) ==
LOC: M.PC 03:39
DX: M47.816 Spondylosis without myelopathy or radiculopathy, lumbar region (principal); M47.817 Spondylosis without myelopathy or radiculopathy, lumbosacral region; Z79.891 Long term (current) use of opiate analgesic; Z98.890 Other specified postprocedural states; Z96.641 Presence of right artificial hip joint; Z79.01 Long term (current) use of anticoagulants; Z87.09 Personal history of other diseases of the respiratory system

== ENCOUNTER → 2017-06-27 | Outpatient (CLI) | payer OTHER ==
--- NOTE | 2017-06-28 07:50 | PAINCON ---
[address] [address] PAIN MANAGEMENT CONSULTATION Name: AURE BERG [id number] Admission: 06/27/17 Attend Phys: Terrance Gallo Discharge: Date of : 57 Report #: [id number] THIS REPORT FOR: //name// CC: Gabino Bryant The patient is a 62-year-old gentleman, prior seen in the pain clinic for symptomatic lumbar and lumbosacral spondylosis without myelopathy, status post lumbar decompressive laminectomy, most recently status post left total hip arthroplasty. On 06/20/2017, we proceeded with radiofrequency neurolysis right L3, 4 and 5 medial branch dorsal rami. The patient returns to pain clinic today. I am pleased to note that his axial back pain is nearly completely gone. He still is having pain; however, in the left hip and is advancing poorly from his orthopedic surgeon standpoint regarding a total hip arthroplasty. He states that walking 0.2-0.3 miles he has significant spasm to left anterior thigh. His opiate analgesic is being managed by Dr. Goldstein and his orthopedic surgeon. His orthopedic surgeon has referred him to [facility], outpatient physical therapy starting next week to help improve range of motion and strength in that left thigh. PHYSICAL EXAMINATION: Shows a pleasant 62-year-old gentleman, BMI is 40.2 kg/m2. Blood pressure is modestly elevated 180/90, pulse 68, respirations are 16. Rises from the chair using the armrest. Antalgic gait. Difficulty bearing weight on the left hip. He has some diffuse tenderness in the low back. No discrete trigger points are noted. Lumbar range of motion is actually improved. ASSESSMENT: 1. Lumbosacral spondylosis without myelopathy, symptoms dramatically improved following radiofrequency neurolysis of the innervation of the right L4-L5 and L5-S1 facets (radiofrequency neurolysis of the right L3, 4 and 5 medial branch dorsal rami). 2. Lumbar radiculopathy, status post decompressive laminectomy. 3. Ongoing left hip pain and muscle spasm, status post left total hip arthroplasty. RECOMMENDATION: Continue gabapentin, oxycodone, morphine, and Celebrex as per Dr. Goldstein. I have taken the liberty of writing for tizanidine 4 mg half to one tablet 3 times a day, #100, times 2. Suggest the patient trial one half tizanidine 3 times a day, enabling him to take another tablet once or twice if needed for acute spasm [place] [address] PAIN MANAGEMENT CONSULTATION Name: AURE BERG [id number] Admission: 06/27/17 Attend Phys: Terrance Gallo Discharge: Date of : 57 Report #: [id number] Thanks for allowing me to participate in the patient's care. He was discharged in good and stable condition. We will follow up simply as needed. <ELECTRONICALLY SIGNED> By: Christiano Bryant DO 06/28/17 0750 1332 1730[facility] [place] Bryant DO /nt
== END ==
LOC: M.PC 04:00
DX: M47.817 Spondylosis without myelopathy or radiculopathy, lumbosacral region (principal); M47.816 Spondylosis without myelopathy or radiculopathy, lumbar region; M54.16 Radiculopathy, lumbar region; M25.552 Pain in left hip; Z96.642 Presence of left artificial hip joint

== ENCOUNTER → 2017-07-27 | Outpatient (CLI) | payer OTHER | LOC: M.RAD 12:22 | DX: R07.81 Pleurodynia (principal); R07.89 Other chest pain ==

== ENCOUNTER → 2018-01-01 | Outpatient (CLI) | payer OTHER ==
[~2018-01-01] VITALS: Ht 188 cm; Wt 141.5 kg
[2018-01-01 12:09] VITALS: BP 180/99
[2018-01-01 12:30] LABS: HEMATOCRIT 45.3 % (42.0-52.0); HEMOGLOBIN 14.8 gm/dL (14.0-18.0); MCH 28.4 pg (26.0-34.0); MCHC 32.7 g/dL (28.0-37.0); MCV 86.7 fL (80.0-100.0); MPV 8.6 fl. (7.2-11.1); RBC 5.22 mil/uL (4.50-6.00); RDW-CV 14.4 % (10.5-14.5); WBC 9.3 thou/uL (4.0-11.0)
[2018-01-01 12:40] LABS: APTT 32.9 Seconds (25.0-31.3); PROTIME 10.2 Seconds (9.20-11.50)
[2018-01-01 12:44] LABS: CALCIUM 9.1 mg/dL (8.5-10.1); CREATININE 0.8 mg/dL (0.6-1.3); POTASSIUM 3.9 mmol/L (3.5-5.1)
[2018-01-01 12:57] LABS: ALBUMIN 3.6 g/dL (3.4-5.0); TOTAL BILIRUBIN 0.4 mg/dL (<0.1-1.0); TOTAL PROTEIN 8.7 g/dL (6.4-8.2)
[2018-01-01 14:15] VITALS: BP 127/77
[2018-01-01 14:30] VITALS: BP 140/78
[2018-01-01 14:45] VITALS: BP 130/76
[2018-01-01 15:13] VITALS: BP 123/70
--- NOTE | 2018-01-01 15:31 | EKG ---
[place] [address] ELECTROCARDIOGRAM REPORT Name: AURE BERG Room: [facility]#: [id number] Admission: 01/01/18 Attend Phys: Chago Diallo DO Discharge: Date of : 57 Report #: [id number] THIS REPORT FOR: //name// [facility] Test Date: 2018-01-01 Test Time: 12:18:42 Pat Name: AURE BERG Department: Room: Gender: M Gynecology Teacher: ROSENDO : 1955 Requested By: Chago Diallo Order Number: [id number] Reading MD: Ghulam Haley Measurements Intervals [place] Rate: 73 P: 33 RI: 135 QRS: 46 QRSD: 91 T: 21 QT: 374 QTc: 413 Interpretive Statements Sinus rhythm Compared to ECG 04/19/2017 09:05:48 No significant changes Electronically Signed On 01-01-2018 15:31:02 [employer] by Ghulam Haley [email or web address] <ELECTRONICALLY SIGNED> By: Ghulam Haley MD, [facility] 01/01/18 1531 1218 1218 Ghulam Haley MD, FACC /EPI
--- NOTE | 2018-01-02 07:48 | OP ---
[address] [address] OPERATIVE REPORT Name: AURE BERG [id number] Admission: 01/01/18 Attend Phys: Chago Diallo DO Discharge: Date of : 57 Report #: [id number] THIS REPORT FOR: //name// CC: Chago Goldstein DATE OF SERVICE: 01/01/2018 PREOPERATIVE DIAGNOSES: History of thromboembolic event, status post IVC filter placement. POSTOPERATIVE DIAGNOSES: History of thromboembolic event, status post IVC filter placement. OPERATION: 1. Ultrasound-guided access to right internal jugular vein. 2. Inferior venacavogram. 3. IVC filter retrieval. SURGEON: Chago Diallo DO. EMPLOYEE DEVELOPMENT SPECIALIST: None. ANESTHESIA: Sedation local. ESTIMATED BLOOD LOSS: 25 mL. FLUIDS: 100 crystalloid. URINE OUTPUT: None. SPECIMEN: [place] IVC filter, all prongs intact. FINDINGS: Ultrasound demonstrated right internal jugular vein to be soft and compressible, suitable for access. Initial inferior venacavogram demonstrated patent IVC with no evidence of thrombus within the filter. Post-removal venogram demonstrated again a patent IVC, no thrombus and no extravasation. CLINICAL HISTORY: The patient is a 62-year-old man with a history of thromboembolic events. He had an IVC filter placed as he was undergoing multiple orthopedic procedures and was going to be required to be off anticoagulation. He presents today for filter retrieval. DESCRIPTION OF PROCEDURE: After informed consent was obtained, the patient was taken to the angio suite, placed on the angio bed in supine position. His right neck was prepped and draped in usual sterile fashion. Full timeout was [facility] [address] [place] [address] OPERATIVE REPORT Name: AURE BERG Room: [facility]#: [id number] Admission: 01/01/18 Attend Phys: Chago Diallo DO Discharge: Date of : 57 Report #: [id number] performed identifying correct patient and procedure. Using ultrasound guidance, the right internal jugular vein was identified. Skin and subcutaneous tissues were anesthetized with lidocaine anesthetic. Using micropuncture technique, the jugular vein was accessed. The ultrasound images were preserved. Then, using Seldinger technique, a microwire and microsheath were placed, ultimately upsized to a 6-Mauritanian sheath over a Bentson wire. A Bentson wire was then passed down to the inferior vena cava using fluoroscopic guidance. The catheter was passed over the wire into the distal IVC. The wire was removed and the inferior venacavogram performed. Findings noted above. I then replaced the wire and exchanged out for the retrieval sheath. I then passed arterial sheath down just proximal to the filter. I then removed the dilator and the wire. I then passed the retrieval snare, snared the filter and collapsed in standard fashion. I then removed the filter, examined the filter and all limbs were intact. I performed a completion venogram, which demonstrated no evidence of thrombus and no extravasation. The sheath was removed, and manual pressure was held and the site for 10 minutes. Once hemostasis was ensured, sterile dressing was applied. All sponge, sharp and instrument counts reported correct x 2. He tolerated the procedure well and was transferred to recovery in stable condition. <ELECTRONICALLY SIGNED> By: Chago Diallo DO 01/02/18 0748 1348 1503Ajessy Diallo DO /nt
== END | disposition home or self-care (01) ==
LOC: M.INT 11:29
PROVIDERS: Surgery
DX: Z45.89 Encounter for adjustment and management of other implanted devices (principal); Z86.718 Personal history of other venous thrombosis and embolism; E78.5 Hyperlipidemia, unspecified; Z98.890 Other specified postprocedural states; Z86.73 Personal history of transient ischemic attack (TIA), and cerebral infarction without residual deficits; Z96.641 Presence of right artificial hip joint; Z79.899 Other long term (current) drug therapy; Z79.01 Long term (current) use of anticoagulants

== ENCOUNTER → 2018-04-10 | Outpatient (CLI) | payer OTHER | LOC: M.MRI 14:09 | DX: S46.812A Strain of other muscles, fascia and tendons at shoulder and upper arm level, left arm, initial encounter (principal); M19.012 Primary osteoarthritis, left shoulder; M75.102 Unspecified rotator cuff tear or rupture of left shoulder, not specified as traumatic; X58.XXXA Exposure to other specified factors, initial encounter; Y93.89 Activity, other specified; Y92.89 Other specified places as the place of occurrence of the external cause; Y99.8 Other external cause status ==

== ENCOUNTER 2018-09-11 10:33 | Emergency (ER) | payer OTHER ==
[~2018-09-11] VITALS: Ht 188 cm; Wt 140.6 kg
[2018-09-11 11:52] VITALS: BP 132/76
== END 2018-09-11 11:52 | disposition home or self-care (01) ==
LOC: M.ERS 10:33
DX: R22.41 Localized swelling, mass and lump, right lower limb (principal); E78.5 Hyperlipidemia, unspecified; H54.7 Unspecified visual loss; Z86.73 Personal history of transient ischemic attack (TIA), and cerebral infarction without residual deficits; Z98.890 Other specified postprocedural states; Z96.643 Presence of artificial hip joint, bilateral

== ENCOUNTER → 2018-09-25 | Outpatient (CLI) | payer OTHER | LOC: M.NUC 09-20 13:30 | DX: M25.551 Pain in right hip (principal); M25.561 Pain in right knee; Z96.643 Presence of artificial hip joint, bilateral ==

== ENCOUNTER → 2018-12-03 | Outpatient (CLI) | payer OTHER | LOC: M.MRI 11-26 08:30 | DX: M47.26 Other spondylosis with radiculopathy, lumbar region (principal); M48.061 Spinal stenosis, lumbar region without neurogenic claudication ==

== ENCOUNTER 2019-03-13 12:24 | Emergency (ER) | payer MEDICARE ==
[~2019-03-13] VITALS: Ht 188 cm; Wt 137.0 kg
--- NOTE | ~2019-03-13 | EKG ---
[place] [address] ELECTROCARDIOGRAM REPORT Name: AURE BERG Room: [facility]#: [id number] Admission: 03/13/19 Attend Phys: Discharge: Date of : 57 Date of Service: 03/13/19 1327 Report #: [id number] THIS REPORT FOR: cc: Gabino Goldstein Steve T. DO Epiphany, Epiphany MD ~ THIS REPORT FOR: //name// [facility] ED Test Date: 2019-03-13 Test Time: 13:27:39 Pat Name: AURE BERG Department: Room: Gender: M Ergonomist: [facility] : 1955 Requested By: Micaela Domingo Order Number: [id number] MD: Measurements Intervals [place] Rate: 105 P: 50 [place]: 155 QRS: 64 QRSD: 95 T: -7 QT: 309 QTc: 409 Interpretive Statements Sinus tachycardia LAE, consider biatrial enlargement Compared to ECG 01/01/2018 12:18:42 Sinus rhythm no longer present [email or web address] By: [id number] 26 Epiphany [place], [place] /EPI
[2019-03-13 13:07] LABS: INFLUENZA A ANTIGEN Positive (Negative); INFLUENZA B ANTIGEN Negative (Negative)
[2019-03-13 13:13] LABS: HEMATOCRIT 43.6 % (42.0-52.0); HEMOGLOBIN 14.8 gm/dL (14.0-18.0); MCH 29.1 pg (26.0-34.0); MCV 85.7 fL (80.0-100.0); MPV 8.5 fl. (7.2-11.1); NUCLEATED RBCS 0 /100WBC; PLATELET COUNT* 249 thou/uL (150-400); RBC 5.08 mil/uL (4.50-6.00)
[2019-03-13 13:21] LABS: CALCIUM 8.2 mg/dL (8.5-10.1); CREATININE 1.2 mg/dL (0.6-1.3); POTASSIUM 3.5 mmol/L (3.5-5.1)
[2019-03-13 13:23] LABS: APTT 34.2 Seconds (25.0-31.3); INR 1.2; PROTIME 12.2 Seconds (9.20-11.50)
[2019-03-13 13:28] LABS: ABSOLUTE LYMPHOCYTES 1.1 thou/uL (0.8-5.3); ABSOLUTE MONOCYTES 1.3 thou/uL (0.0-1.2); ABSOLUTE NEUTROPHILS 7.6 thou/uL (1.6-8.1); ANISOCYTOSIS 1+; PLATELET ESTIMATE ADEQUATE; POIKILOCYTOSIS 1+
[2019-03-13 13:32] LABS: ALBUMIN 3.4 g/dL (3.4-5.0); TOTAL BILIRUBIN 0.5 mg/dL (<0.1-1.0); TOTAL PROTEIN 8.7 g/dL (6.4-8.2)
[2019-03-13] MEDS ORDERED: ONDANSETRON HCL4 M2 PO ×2 (14:42→14:43)
[2019-03-13] MEDS ORDERED: TAMIFLU75 MG PO ×2 (14:42→14:43)
[2019-03-13] MEDS ORDERED: TESSALON PERLE100 MG PO (14:46)
[2019-03-13] MEDS ORDERED: DOXYCYCLINE 10100 MG PO (14:48)
[2019-03-13] MEDS ORDERED: ALBUTEROL2.5 MG/0.5 INH ×2 (15:01)
[2019-03-13 15:55] VITALS: BP 169/94
== END 2019-03-13 15:56 | disposition home or self-care (01) ==
LOC: M.ERS 12:24
PROVIDERS: Nurse Practitioner Family
DX: S39.011A Strain of muscle, fascia and tendon of abdomen, initial encounter (principal); J10.1 Influenza due to other identified influenza virus with other respiratory manifestations; R79.1 Abnormal coagulation profile; R11.2 Nausea with vomiting, unspecified; I10 Essential (primary) hypertension; E78.5 Hyperlipidemia, unspecified; Z86.73 Personal history of transient ischemic attack (TIA), and cerebral infarction without residual deficits; Z96.643 Presence of artificial hip joint, bilateral; X58.XXXA Exposure to other specified factors, initial encounter; Y93.89 Activity, other specified; Y92.89 Other specified places as the place of occurrence of the external cause; Y99.8 Other external cause status

== ENCOUNTER 2019-07-17 07:17 | Emergency (ER) | payer MEDICARE ==
[~2019-07-17] VITALS: Ht 188 cm; Wt 136.1 kg
[~2019-07-17 07:17] MED LIST changes: +ALBUTEROL2.5 MG/0.5 INH; +DOXYCYCLINE 10100 MG PO; +ONDANSETRON HCL4 M2 PO; +TAMIFLU75 MG PO
[2019-07-17 08:10] LABS: ABSOLUTE BASOPHILS 0.1 thou/uL (0.0-0.2); ABSOLUTE EOSINOPHILS 0.1 thou/uL (0.0-0.7); ABSOLUTE LYMPHOCYTES 2.6 thou/uL (0.8-5.3); ABSOLUTE MONOCYTES 0.7 thou/uL (0.0-1.2); ABSOLUTE NEUTROPHILS 6.9 thou/uL (1.6-8.1); BASOPHILS 1.1 %; EOSINOPHILS 1.2 %; HEMATOCRIT 47.3 % (42.0-52.0); HEMOGLOBIN 16.1 gm/dL (14.0-18.0); LYMPHOCYTES 25.2 %; MCH 29.2 pg (26.0-34.0); MCHC 34.2 g/dL (28.0-37.0); MCV 85.6 fL (80.0-100.0); MONOCYTES 6.5 %; MPV 8.4 fl. (7.2-11.1); NUCLEATED RBCS 0 /100WBC; PLATELET COUNT* 305 thou/uL (150-400); RBC 5.52 mil/uL (4.50-6.00); RDW-CV 14.1 % (10.5-14.5); WBC 10.5 thou/uL (4.0-11.0)
[2019-07-17 08:17] LABS: PROTIME 10.7 Seconds (9.20-11.50)
[2019-07-17 08:19] LABS: POTASSIUM 3.9 mmol/L (3.5-5.1)
[2019-07-17 08:23] LABS: ALBUMIN 3.5 g/dL (3.4-5.0); TOTAL BILIRUBIN 0.5 mg/dL (<0.1-1.0); TOTAL PROTEIN 8.7 g/dL (6.4-8.2)
[2019-07-17 09:27] LABS: URINE BILIRUBIN NEGATIVE (Negative); URINE BLOOD NEGATIVE (Negative); URINE CLARITY CLEAR; URINE COLOR YELLOW; URINE GLUCOSE-RANDOM NEGATIVE (Negative); URINE KETONES NEGATIVE (Negative); URINE LEUKOCYTES-REFLEX NEGATIVE (Negative); URINE NITRITE-REFLEX NEGATIVE (Negative); URINE PROTEIN NEGATIVE (Negative); URINE UROBILINOGEN 0.2 E.U./dl (0.2-1.0)
[2019-07-17] MEDS ORDERED: NORCO 5-325 TA1 EAC1 PO (10:27)
[2019-07-17] MEDS ORDERED: CARAFATE 1 GM TA1 G1 PO (10:27)
[2019-07-17 10:53] VITALS: BP 167/96
--- NOTE | 2019-07-17 16:02 | EKG ---
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: [facility] : 1955 Requested By: Shlomo Ferrara Order Number: [id number] MD: Mk Perdue Measurements Intervals [place] Rate: 74 P: 53 [place]: 145 QRS: 41 QRSD: 91 T: 51 QT: 373 QTc: 414 Interpretive Statements Sinus rhythm Baseline wander in lead(s) V1,V3 Compared to ECG 03/13/2019 13:27:39 Sinus tachycardia no longer present Electronically Signed On 07-17-2019 16:01:15 CDT by Mk Perdue [email or web address] <ELECTRONICALLY SIGNED> By: Mk Perdue MD, [facility] 07/17/19 1601 0759 [id number] Mk Perdue MD, [facility] /EPI
== END 2019-07-17 10:53 | disposition home or self-care (01) ==
LOC: M.ERS 07:17
PROVIDERS: Emergency Medicine Emergency Medical Services
DX: R10.32 Left lower quadrant pain (principal); K92.1 Melena; I10 Essential (primary) hypertension; E78.5 Hyperlipidemia, unspecified; Z86.73 Personal history of transient ischemic attack (TIA), and cerebral infarction without residual deficits; Z79.84 Long term (current) use of oral hypoglycemic drugs; Z79.01 Long term (current) use of anticoagulants; Z96.643 Presence of artificial hip joint, bilateral

== ENCOUNTER → 2019-08-20 | Outpatient (CLI) | payer MEDICARE ==
[~2019-08-20] MED LIST changes: +CARAFATE 1 GM TA1 G1 PO; +NORCO 5-325 TA1 EAC1 PO
== END ==
LOC: M.LAB 16:28
PROVIDERS: ATTEND Internal Medicine Gastroenterology
DX: Z01.812 Encounter for preprocedural laboratory examination (principal); Z11.59 Encounter for screening for other viral diseases; K21.9 Gastro-esophageal reflux disease without esophagitis; K92.1 Melena; Z86.010 Personal history of colon polyps

== ENCOUNTER → 2019-08-25 | Outpatient (CLI) | payer MEDICARE ==
[2019-08-25 07:05] LABS: PROTIME 10.7 Seconds (9.20-11.50)
== END ==
LOC: M.LAB 02:40
PROVIDERS: ATTEND Anesthesiology
DX: R79.1 Abnormal coagulation profile (principal)

== ENCOUNTER 2020-03-23 08:47 | Observation (INO) | payer OTHER ==
[~2020-03-23] VITALS: Ht 188 cm; Wt 145.6 kg
--- NOTE | ~2020-03-23 | CON ---
[address] [address] CONSULTATION Name: AURE BERG Room: [address] Bessie Ellis#: [id number] Admission: 03/23/20 Attend Phys: Chapis Sheriff MD Discharge: Date of : 57 Report #: [id number] THIS REPORT FOR: cc: Miri Guajardo MD, Katrina MD ~ Eugene Menjivar MD DATE OF SERVICE: 03/23/2020 HISTORY OF PRESENT ILLNESS: This is a 65-year-old male who was seen by me to evaluate for any neurological etiology for the patient's syncope. He says he had multiple episodes of syncope. It looks like it lasts just for a few seconds. He does not know what brings it on. One of that happened on the toilet. He never hit his head in any one of those. It does not look like he has any tonic-clonic activity associated with these episodes. I am not sure if there is any well-defined postictal period. 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 He was diagnosed with hypercoagulable state. He is on Coumadin since then. He denies any recent strokes. These episodes are new and according to him started today. His review of system is also positive for hyperlipidemia, back pain and he said he is retired because of the back pains some time ago. He had some headache in the past, which was attributed to his cervical spine. I am not sure what caused this patient's stroke and what symptoms he had, but he is blind in the right eye and he saw his a physician in [facility] for that, He does not remember his name. He had a hip replacement on both sides. He does have a history of hypertension, but his medication has not been changed recently. That was his 14-point review of systems and he does not believe that he had any new eyes, cardiac, respiratory, GI, , musculoskeletal, constitutional, dermatological, hematological, psychiatric, throat, allergic symptom associated with present symptomatology. He does have other multiple symptoms and those have been described earlier. PAST MEDICAL HISTORY: Positive for stroke, but the history is poorly defined what symptoms he had. FAMILY HISTORY: Positive for stroke, but that was at later age. SOCIAL HISTORY: The patient is . He said his witnessed the stroke, but I was not able to talk to the patient's He says he does not drink much alcohol. He drank 1 alcoholic drink on his birthday 2 weeks ago. PHYSICAL EXAMINATION: Indicate he is alert. He is responsive. His speech, concentration, fund of knowledge and memory is at his baseline. His cranial nerve examination 2-12 is unremarkable except for blindness in the right eye, [place] [address] CONSULTATION Name: AURE BERG Room: [address] Bessie Ellis#: [id number] Admission: 03/23/20 Attend Phys: Chapis Sheriff MD Discharge: Date of : 57 Report #: [id number] which is old. His strength, sensation, reflexes and tone is symmetrical. There is no meningeal sign. There is no edema. His hearing and vision looks okay. No thyroid mass. He is a well-developed individual who has no dysmorphic features of eyes, ears and face. His cardiac examinations appear unremarkable. No respiratory difficulty was noticed. Blood pressure is 151/86, respirations 17, pulse is 73, temperature is 96.5. LABORATORY DATA: His hemoglobin is normal. He had multiple workups in the past, especially in 2001 when those were reviewed. His MRI of the brain was reported as negative at that time. IMPRESSION: Pretty confusing and unusual history, but because of multiple episodes of syncope, which started recently, I think it will be desirable to do an MRI in this patient. I will also get an EEG done. We will see if he shows any postural hypotension. Multiple records in the past shown a negative MRI, but he said he had 2 strokes. Thank you very much for this referral. We will follow the patient with you after MRI and EEG. By: [id number] Menjivar MD /randi
--- NOTE | ~2020-03-23 | EEG ---
[address] [address] EEG STUDY REPORT Name: AURE BERG Room: [address] [place] .R.#: [id number] Admission: 03/24/20 Attend Phys: Chapis Sheriff MD Discharge: Date of : 57 Report #: [id number] THIS REPORT FOR: cc: Miri Guajardo MD, Katrina MD ~ Eugene Menjivar MD This patient is having recurrent episodes of syncope. EEG is being done to evaluate the possibility of seizure. EEG was done by placing the electrode by standard 10-20 system of electrode placement. Both referential and sequential montages were used for recording. Background activity in this patient's EEG is about 8-9 Hz and 30 microvolt. The patient was asleep during major part of this EEG that is associated with bilaterally symmetrical sleep spindle and vertex sharp waves. Photic stimulation is unremarkable. Throughout the record, no active epileptiform activity was noticed. IMPRESSION: This patient's electroencephalogram is unremarkable. Thank you very much for this referral. By: [id number] Menjivar MD /nt
[2020-03-23 08:54] VITALS: BP 190/104
[2020-03-23] MEDS ORDERED: LIPITOR10 MG PO (08:59)
[2020-03-23 09:05] LABS: ABSOLUTE BASOPHILS 0.1 thou/uL (0.0-0.2); ABSOLUTE EOSINOPHILS 0.1 thou/uL (0.0-0.7); ABSOLUTE MONOCYTES 0.6 thou/uL (0.0-1.2); ABSOLUTE NEUTROPHILS 6.5 thou/uL (1.6-8.1); BASOPHILS 0.8 %; EOSINOPHILS 1.4 %; HEMATOCRIT 47.1 % (42.0-52.0); HEMOGLOBIN 15.7 gm/dL (14.0-18.0); LYMPHOCYTES 28.8 %; MCH 28.5 pg (26.0-34.0); MCHC 33.4 g/dL (28.0-37.0); MCV 85.3 fL (80.0-100.0); MONOCYTES 6.3 %; MPV 7.9 fl. (7.2-11.1); NUCLEATED RBCS 0 /100WBC; PLATELET COUNT* 313 thou/uL (150-400); POLYS 62.7 %; RBC 5.52 mil/uL (4.50-6.00); RDW-CV 14.7 % (10.5-14.5); WBC 10.3 thou/uL (4.0-11.0)
[2020-03-23 09:21] LABS: CALCIUM 8.4 mg/dL (8.5-10.1); POTASSIUM 4.5 mmol/L (3.5-5.1)
[2020-03-23 09:25] LABS: ALBUMIN 3.6 g/dL (3.4-5.0); TOTAL BILIRUBIN 0.2 mg/dL (<0.1-1.0); TOTAL PROTEIN 8.5 g/dL (6.4-8.2)
[2020-03-23 09:38] LABS: INR 1.3; PROTIME 13.5 Seconds (9.20-11.50)
[2020-03-23 09:56] LABS: URINE BILIRUBIN NEGATIVE (Negative); URINE BLOOD 1+ (Negative); URINE CLARITY CLEAR; URINE COLOR YELLOW; URINE GLUCOSE-RANDOM NEGATIVE (Negative); URINE KETONES NEGATIVE (Negative); URINE LEUKOCYTES-REFLEX NEGATIVE (Negative); URINE NITRITE-REFLEX NEGATIVE (Negative); URINE PROTEIN 1+ (Negative); URINE SPECIFIC GRAVITY >= 1.030 (1.005-1.030); URINE UROBILINOGEN 0.2 E.U./dl (0.2-1.0)
[2020-03-23 10:13] LABS: BACTERIA-REFLEX 1-9 Few /HPF (None Seen); CASTS None Seen /LPF (None Seen); CRYSTALS None Seen /LPF (None Seen); MUCUS 4-6 Moderate strn/LPF (None Seen); SQUAMOUS 0-3 Few /LPF (0-3); URINE RBC 3-10 Few /HPF (0-2); URINE WBC-REFLEX 0-5 Rare /HPF (0-5)
[2020-03-23 11:41] VITALS: BP 151/86
[2020-03-23 12:17] LABS: BE -2.3 mmol/L (-2 to +3); PCO2 39.2 mmHg (35.0-45.0); PO2 123.6 mmHg (75.0-100.0); pH 7.377 (7.340-7.450)
[2020-03-23 13:30] LABS: CHOLESTEROL 241 mg/dL (<200); HDL CHOLESTEROL 37 mg/dL (>40); LDL CHOLESTEROL 184 mg/dL (<100); SERUM ASSESSMENT Clear; TC:HDL 6.5 Ratio (Not establshd); TRIGLYCERIDE 102 mg/dL (<150); VLDL 20 mg/dL (<40)
--- NOTE | 2020-03-23 16:19 | EKG ---
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 : 1955 Requested By: Darrell Tyler Order Number: [id number] MD: Carson Govea Measurements Intervals [place] Rate: 83 P: 56 [place]: 148 QRS: 63 QRSD: 93 T: 60 QT: 383 QTc: 450 Interpretive Statements Sinus rhythm Consider anterior infarct Baseline wander in lead(s) V2,V3,V4,V5,V6 Compared to ECG 07/17/2019 07:59:44 Myocardial infarct finding possible present Electronically Signed On 03-23-2020 16:19:05 DIRECTOR MEDICAL by Carson Govea [email or web address] <ELECTRONICALLY SIGNED> By: Carson Govea MD, [facility] 03/23/20 1619 0852 0852 Carson Govea MD, [facility] /EPI
--- NOTE | 2020-03-23 16:29 | 2DMMODE ---
[place] [address] 2 D/M-MODE ECHOCARDIOGRAM Name: AURE BERG Room: [address] Rhonda#: [id number] Admission: 03/23/20 Attend Phys: Chapis Sheriff, Discharge: Date of : 57 Date of Service: 03/23/20 1629 Report #: [id number] THIS REPORT FOR: cc: Miri Guajardo MD, Katrina MD Blick, David R. MD [facility] ~ APPROVED REPORT Study performed: 03/23/2020 15:21:02 EXAM: Comprehensive 2D, Doppler, and color-flow Echocardiogram Patient Location: In-Patient Room #: [facility] BSA: 2.58 HR: 72 bpm BP: 151/86 mmHg Rhythm: NSR Other Information Study Quality: Fair Indications Syncope 2D Dimensions IVSd: 13.84 (7-11mm) LVOT Diam: 19.83 (18-24mm) LVDd: 44.12 mm PWd: 12.34 (7-11mm) Ascending Ao: 30.17 (22-36mm) LVDs: 27.04 (25-40mm) Aortic Root: 33.65 mm Volumes Left Atrial Volume (Systole) LA ESV Index: 13.40 mL/m2 Aortic Valve AoV Peak Clinton.: 1.31 m/s AO Peak Gr.: 6.84 mmHg LVOT Max P.14 mmHg AO Mean Gr.: 3.89 mmHg LVOT Mean P.78 mmHg LVOT Max V: 1.02 m/s AO V2 VTI: 24.39 cm LVOT Mean V: 0.59 m/s DEVORAH (VTI): 2.19 cm2 LVOT V1 VTI: 17.26 [place] [address] 2 D/M-MODE ECHOCARDIOGRAM Name: AURE BERG Room: [address] MAshishRAshish#: [id number] Admission: 03/23/20 Attend Phys: Chapis Sheriff, Discharge: Date of : 57 Date of Service: 03/23/20 1629 Report #: [id number] Mitral Valve E/A Ratio: 0.99 MV Decel. Time: 271.42 ms MV E Max Clinton.: 0.60 m/s MV PHT: 78.71 ms MVA (PHT): 2.79 cm2 TDI E/Lateral E': 8.57 E/Medial E': 5.45 Medial E' Clinton.: 0.11 m/s Lateral E' Clinton.: 0.07 m/s Pulmonary Valve PV Peak Clinton.: 0.95 m/s PV Peak Gr.: 3.57 mmHg Left Ventricle The left ventricle is normal size. There is normal LV segmental wall motion. Mild concentric left ventricular hypertrophy. Left ventricular systolic function is normal. The left ventricular ejection fraction is within the normal range. LVEF is 55-60%. The left ventricular diastolic function is normal. Right Ventricle Right ventricle is dilated. The right ventricular systolic function is normal. Atria The left atrium size is normal. Right atrium is dilated. Aortic Valve The aortic valve is normal in structure. No aortic regurgitation is present. There is no aortic valvular stenosis. Mitral Valve The mitral valve is normal in structure. There is trace mitral valve regurgitation noted. No evidence of mitral valve stenosis. Tricuspid Valve The tricuspid valve is normal in structure. Unable to assess PA pressure. Trace tricuspid regurgitation. Pulmonic Valve Pulmonic valve is not well visualized. There is no pulmonic valvular regurgitation[place] [address] 2 D/M-MODE ECHOCARDIOGRAM Name: AURE BERG Room: [address]#: [id number] Admission: 03/23/20 Attend Phys: Chapis Sheriff, Discharge: Date of : 57 Date of Service: 03/23/20 1629 Report #: [id number] The aortic root is normal in size. IVC is normal in size and collapses >50% with inspiration. Pericardium There is no pericardial effusion. <Conclusion> LVEF is 55-60%. Mild concentric left ventricular hypertrophy. <ELECTRONICALLY SIGNED> By: Carson Govea MD, FACC 03/23/20 1629 28 28 Carson Govea MD, FACC /INF
[2020-03-23 19:51] VITALS: BP 158/85
[2020-03-23 20:00] VITALS: BP 131/62
[2020-03-23] MEDS ORDERED: WARFARIN SODIUM10 MG PO (22:26)
[2020-03-23 23:35] VITALS: BP 133/70
[2020-03-24] VITALS (8 sets, daily range): BP systolic 121–161; BP diastolic 66–93
[2020-03-24 04:59] LABS: INR 1.4; PROTIME 14.7 Seconds (9.20-11.50)
[2020-03-25 04:32] LABS: INR 1.4; PROTIME 14.8 Seconds (9.20-11.50)
[2020-03-25 04:39] VITALS: BP 144/85
[2020-03-25 08:00] VITALS: BP 144/72
[2020-03-25] MEDS ORDERED: LIPITOR 40 MG T40 M1 PO (08:57)
[2020-03-25] MEDS ORDERED: LISINOPRIL5 MG PO (08:57)
[2020-03-25] MEDS ORDERED: MECLIZINE HCL25 MG PO (08:57)
[2020-03-25 12:00] VITALS: BP 143/84
[2020-03-25 16:06] VITALS: BP 143/84
== END 2020-03-25 16:40 | disposition home or self-care (01) ==
LOC: M.ERS 08:47 → M.TBA-ER 10:00 → M.2W 11:56
PROVIDERS: Family Medicine; ADMIT Internal Medicine; ATTEND Internal Medicine
DX: R55 Syncope and collapse (principal); R42 Dizziness and giddiness; Z20.822 Contact with and (suspected) exposure to COVID-19; E78.5 Hyperlipidemia, unspecified; E43 Unspecified severe protein-calorie malnutrition; I10 Essential (primary) hypertension; G89.29 Other chronic pain; M54.9 Dorsalgia, unspecified; M19.90 Unspecified osteoarthritis, unspecified site; Z98.890 Other specified postprocedural states; Z86.73 Personal history of transient ischemic attack (TIA), and cerebral infarction without residual deficits; Z79.01 Long term (current) use of anticoagulants

== ENCOUNTER 2020-08-31 12:15 | Emergency (ER) | payer OTHER ==
[~2020-08-31] VITALS: Ht 188 cm; Wt 147.0 kg
[~2020-08-31 12:15] MED LIST changes: +LIPITOR 40 MG T40 M1 PO; +LIPITOR10 MG PO; +LISINOPRIL5 MG PO; +MECLIZINE HCL25 MG PO; +WARFARIN SODIUM10 MG PO
[2020-08-31] MEDS ORDERED: HYDROCODON-ACE1 EAC7 PO (14:09)
[2020-08-31 14:28] VITALS: BP 164/98
== END 2020-08-31 14:29 | disposition home or self-care (01) ==
LOC: M.ERS 12:15
DX: S93.401A Sprain of unspecified ligament of right ankle, initial encounter (principal); S93.601A Unspecified sprain of right foot, initial encounter; I10 Essential (primary) hypertension; E66.01 Morbid (severe) obesity due to excess calories; E78.5 Hyperlipidemia, unspecified; Z79.899 Other long term (current) drug therapy; Z79.01 Long term (current) use of anticoagulants; X50.1XXA Overexertion from prolonged static or awkward postures, initial encounter; Y93.89 Activity, other specified; Y92.89 Other specified places as the place of occurrence of the external cause; Y99.9 Unspecified external cause status